=== PATIENT | female | born 1985 ===

== ENCOUNTER 2019-09-08 16:25 | Emergency (ER) | payer SELFPAY ==
[2019-09-08] MEDS ORDERED: ACETAMINOPHEN 325 MG TAB PO ONE (20:31)
--- NOTE | 2019-09-08 20:31 | Event Note ---
ED Screening Note ED Screening Note: left sided abd pain two days ago constipation no n/v/d no appetite no dysuria no allergies to meds on depo This initial assessment/diagnostic orders/clinical plan/treatment(s) is/are subject to change based on patients health status, clinical progression and re- assessment by fellow clinical providers in the ED. Further treatment and workup at subsequent clinical providers discretion. Patient/guardian urged not to elope from the ED as their condition may be serious if not clinically assessed and man aged. Initial orders include: labs, UA
[2019-09-08] MEDS ORDERED: ACETAMINOPHEN 325 MG TAB ONE (20:32)
[2019-09-08 21:17] LABS: Basophils # (Auto) 0.1 K/mm3 (0.0-0.1); Basophils % (Auto) 0.9 % (0.0-1.8); Eosinophils # (Auto) 0.1 K/mm3 (0.0-0.4); Eosinophils % (Auto) 0.8 % (0.0-4.3); Hematocrit 37.3 % (30.3-42.9); Hemoglobin 12.8 gm/dl (10.1-14.3); Lymphocytes # (Auto) 3.8 K/mm3 (1.2-5.4); Lymphocytes % (Auto) 45.7 % (13.4-35.0); Mean Corpuscular HGB Conc 34 % (30-34); Mean Corpuscular Volume 94 fl (79-97); Monocytes # (Auto) 0.5 K/mm3 (0.0-0.8); Monocytes % (Auto) 5.9 % (0.0-7.3); Platelet Count 339 K/mm3 (140-440); Red Blood Count 3.98 M/mm3 (3.65-5.03); Red Cell Distribution Width 14.2 % (13.2-15.2)
[2019-09-08 21:31] LABS: Alanine Aminotransferase 11 units/L (7-56); Albumin 4.8 g/dL (3.9-5); BUN/Creatinine Ratio 16; Blood Urea Nitrogen 11 mg/dL (7-17); Calcium 9.9 mg/dL (8.4-10.2); Hemolysis Index 47
[2019-09-08 21:43] LABS: Bilirubin,Urine NEG (Negative); Blood,Urine SM (Negative); Color,Urine Straw (Yellow); Protein,Urine <15 mg/dL mg/dL (Negative); Urobilinogen,Urine < 2.0 mg/dL (<2.0); WBC,Urine < 1.0 /HPF (0.0-6.0)
[2019-09-09] MEDS ORDERED: ONDANSETRON 4 MG/2 ML INJ IV ONE (01:37)
[2019-09-09] MEDS ORDERED: SODIUM CHLORIDE 0.9% 1000 ML 1,000 ML IV ONE (01:37)
[2019-09-09] MEDS ORDERED: MORPHINE 2 MG/1 ML INJ IV ONE (01:37)
--- NOTE | 2019-09-09 02:58 | Cat Scan Report ---
CT ABDOMEN AND PELVIS WITH CONTRAST INDICATION: Left lower quadrant pain. COMPARISON: No relevant prior imaging study available. TECHNIQUE: Axial, coronal and sagittal CT imaging of the abdomen and pelvis was performed after inje ction of 100 cc Omnipaque [address] scans at this location are performed using CT dose re duction for ALARA by means of automated exposure control. FINDINGS: LOWER CHEST: No significant abnormality. LIVER: No significant abnormality. BILIARY: No significant abnormality. PANCREAS: No significant abnormality. SPLEEN: No significant abnormality. ADRENALS: No significant abnormality. KIDNEYS AND URETERS: No significant abnormality. GI TRACT: No significant abnormality of the stomach, small bowel or colon. Unremarkable appendix. PERITONEUM: No free fluid. No free air. No fluid collection. LYMPH NODES: No significant adenopathy. VASCULATURE: No significant abnormality. URINARY BLADDER: No significant abnormality. REPRODUCTIVE ORGANS: No significant abnormality. ADDITIONAL FINDINGS: None. SKELETAL SYSTEM: No significant abnormality. IMPRESSION: No acute abnormality of the abdomen or pelvis. Signer Name: Dom Stephenson MD Signed: 09/09/2019 2:54 AM Workstation Name: [id number]
[2019-09-09] MEDS ORDERED: KETOROLAC 30 MG/1 ML INJ IV ONE (03:13)
[2019-09-09] MEDS ORDERED: MAGNESIUM CITRATE 300 ML ORAL LIQD PO ONE (03:13)
--- NOTE | 2019-09-09 04:18 | Emergency Department Report ---
ED Abdominal Pain HPI - General Chief Complaint: Abdominal Pain Stated Complaint: LFT SIDE STOMACH PAIN Time Seen by Provider: 09/08/19 20:21 Source: patient, leadership program internship Mode of arrival: Ambulatory Limitations: Language Barrier - History of Present Illness Initial Comments: Patient is a A0 33-year-old female with a history of recurrent c hronic constipation who presents to the ED with complaint of acute onset persistent left lower quadrant abdominal pain for the last 2 days. Patient states that the pain got worse in the last 6 hours. Patient states that the last time she had a bowel movement was 2 days ago. Patient denies dysuria, urinary frequency and urgency, vaginal bleeding, vaginal discharge, hematochezia, hematemesis, vomiting, fever, chills, chest pain, low back pain or syncope. MD Complaint: abdominal pain, other (constipation) -: Sudden, days(s) (2) Location: LL Radiation: none Migration to: no migration Severity scale (0 -10): 7 Quality: cramping, aching, sharp Consistency: constant Improves With: nothing Worsens With: nothing Associated Symptoms: denies other symptoms, nausea, constipation, anorexia. denies: vomiting, diarrhea, fever, chills, dysuria, hematemesis, hematochezia, melena, syncope - Related Data LMP (females 10-50): unknown Previous Rx's Medication Instructions Recorded Last Taken Type Dicyclomine [Bentyl] 20 mg PO Q6H PRN #24 tablet 09/09/19 Unknown Rx Docusate Sodium [Colace CAP] 100 mg PO Q12H PRN #60 capsule 09/09/19 Unknown Rx Ketorolac [Toradol] 10 mg PO Q8H PRN #20 tablet 09/09/19 Unknown Rx Magnesium Citrate 296 ml PO ONCE #1 bottle 09/09/19 Unknown Rx Ondansetron [Zofran Odt] 4 mg PO Q6HR PRN #20 tab.rapdis 09/09/19 Unknown Rx Allergies Allergy/AdvReac Type Severity Reaction Status Date / Time No Known Allergies Allergy Verified 09/08/19 16:28 ED Review of Systems ROS: Stated complaint: LFT SIDE STOMACH PAIN Other details as noted in HPI Constitutional: denies: chills, fever Eyes: denies: eye pain, eye discharge, vision change ENT: denies: ear pain, throat pain Respiratory: denies: cough, shortness of breath, wheezing Cardiovascular: denies: chest pain, palpitations Endocrine: no symptoms reported Gastrointestinal: abdominal pain (LLQ area), nausea, constipation. denies: diarrhea, hematemesis, melena, hematochezia Genitourinary: denies: urgency, dysuria, discharge Musculoskeletal: denies: back pain, joint swelling, arthralgia Skin: denies: rash, lesions Neurological: denies: headache, weakness, paresthesias Psychiatric: denies: anxiety, depression Hematological/Lymphatic: denies: easy bleeding, easy bruising ED Past Medical Hx - Past Medical History Previous Medical History?: No - Surgical History Past Surgical History?: Yes Additional Surgical History: I&D - Social History Smoking Status: Never Smoker Substance Use Type: None - Medications Home Medications: Home Medications Medication Instructions Recorded Confirmed Last Taken Type Dicyclomine [Bentyl] 20 mg PO Q6H PRN #24 tablet 09/09/19 Unknown Rx Docusate Sodium [Colace CAP] 100 mg PO Q12H PRN #60 capsule 09/09/19 Unknown Rx Ketorolac [Toradol] 10 mg PO Q8H PRN #20 tablet 09/09/19 Unknown Rx Magnesium Citrate 296 ml PO ONCE #1 bottle 09/09/19 Unknown Rx Ondansetron [Zofran Odt] 4 mg PO Q6HR PRN #20 tab.rapdis 09/09/19 Unknown Rx ED Physical Exam - General Limitations: Language Barrier General appearance: alert, in no apparent distress - Head Head exam: Present: atraumatic, normocephalic, normal inspection - Eye Eye exam: Present: normal appearance, PERRL, EOMI Pupils: Present: normal accommodation - ENT ENT exam: Present: normal exam, normal orophraynx, mucous membranes moist, TM's normal bilaterally, normal external ear exam - Neck Neck exam: Present: normal inspection, full ROM - Respiratory Respiratory exam: Present: normal lung sounds bilaterally. Absent: respiratory distress, wheezes, chest wall tenderness, accessory muscle use - Cardiovascular Cardiovascular Exam: Present: normal rhythm, bradycardia, normal heart sounds. Absent: systolic murmur, diastolic murmur, rubs, gallop - GI/Abdominal GI/Abdominal exam: Present: soft, tenderness (Palpable LLQ tenderness), normal bowel sounds. Absent: guarding, rebound, hyperactive bowel sounds - Extremities Exam Extremities exam: Present: normal inspection, full ROM, normal capillary refill - Back Exam Back exam: Present: normal inspection, full ROM. Absent: tenderness, CVA tenderness (L), muscle spasm, paraspinal tenderness - Neurological Exam Neurological exam: Present: alert, oriented X3, CN II-XII intact, normal gait, reflexes normal - Psychiatric Psychiatric exam: Present: normal affect, normal mood - Skin Skin exam: Present: warm, dry, intact, normal color. Absent: rash ED Course Vital Signs 09/08/19 09/08/19 09/08/19 17:05 20:25 20:57 Temperature 98.6 F 98.6 F Pulse Rate 59 L 59 L Respiratory 18 18 18 Rate Blood Pressure 100/64 Blood Pressure 100/64 [Right] O2 Sat by Pulse 99 99 Oximetry 09/08/19 21:57 Temperature Pulse Rate Respiratory 18 Rate Blood Pressure Blood Pressure [Right] O2 Sat by Pulse Oximetry ED Medical Decision Making - Lab Data Result diagrams: 09/08/19 20:50 09/08/19 20:50 - Radiology Data Radiology results: report reviewed, image reviewed Findings [facility] [address] [place] [address] Cat Scan Report Signed Patient: MARLIN BRISENO MR#: [id number] : 1985 Acct:[id number] Age/Sex: 33 / F ADM Date: 09/08/19 Loc: ED Attending Dr: Ordering Physician: AMBROSIO SHIRLEY Date of Service: 09/09/19 Procedure(s): CT abdomen pelvis w con Accession Number(s): [id number] cc: AMBROSIO SHIRLEY CT ABDOMEN AND PELVIS WITH CONTRAST INDICATION: Left lower quadrant pain. COMPARISON: No relevant prior imaging study available. TECHNIQUE: Axial, coronal and sagittal CT imaging of the abdomen and pelvis was performed after injection of 100 cc Omnipaque [address] scans at this location are performed using CT dose reduction for ALARA by means of automated exposure control. FINDINGS: LOWER CHEST: No significant abnormality. LIVER: No significant abnormality. BILIARY: No significant abnormality. PANCREAS: No significant abnormality. SPLEEN: No significant abnormality. ADRENALS: No significant abnormality. KIDNEYS AND URETERS: No significant abnormality. GI TRACT: No significant abnormality of the stomach, small bowel or colon. Unremarkable appendix. PERITONEUM: No free fluid. No free air. No fluid collection. LYMPH NODES: No significant adenopathy. VASCULATURE: No significant abnormality. URINARY BLADDER: No significant abnormality. REPRODUCTIVE ORGANS: No significant abnormality. ADDITIONAL FINDINGS: None. SKELETAL SYSTEM: No significant abnormality. IMPRESSION: No acute abnormality of the abdomen or pelvis. Signer Name: Dom Stephenson MD Signed: 09/09/2019 2:54 AM Workstation Name: [id number] Transcribed By: ANDREA Dictated By: Dom Stephenson MD Electronically Authenticated By: Dom Stephenson MD Signed Date/Time: 09/09/19253 DD/ 0 TD/TT: - Medical Decision Making This is a 33-year-old female with a history of chronic constipation who presented to the ED with acute onset persistent left lower quadrant pain with nausea and not having had any bowel movement in 2 days. In the ED, patient is alert and oriented 3 and is not in distress but appears to be in pain, crying during the physical exam. Lab test results were reviewed and all nonactionable including urinalysis. Abdomen pelvis CT scan with contrast shows no acute abnormalities in the abdomen and pelvis areas. Patient was treated for pain in the ED and discharged home on medications for pain and also stool softeners. Patient is advised to follow-up with her primary care physician in 5-7 days for reevaluation or return to the ED immediately if symptoms get worse. - Differential Diagnosis Colitis; Diverticulitis; Ovaria cyst; Constipation; UTI Critical care attestation.: If time is entered above; I have spent that time in minutes in the direct care of this critically ill patient, excluding procedure time. ED Disposition Clinical Impression: Abdominal pain Qualifiers: Abdominal location: left lower quadrant Qualified Code(s): R10.32 - Left lower quadrant pain Constipation Qualifiers: Constipation type: unspecified constipation type Qualified Code(s): K59.00 - Constipation, unspecified Disposition: - TO HOME OR SELFCARE Is pt being admited?: No Does the pt Need Aspirin: No Condition: Stable Instructions: Abdominal Pain (ED), Constipation (ED) Additional Instructions: Institute medicamentos y alimentos, fortunato muchos lquidos y sean un seguimiento con tyler mdico de atencin primaria en 5-7 chester para la reevaluacin. Considere esme ablandadores de heces todos los chester para mejorar los hbitos intestinales. Prescriptions: Dicyclomine [Bentyl] 20 mg PO Q6H PRN #24 tablet PRN Reason: Pain , Severe (7-10) Docusate Sodium [Colace CAP] 100 mg PO Q12H PRN #60 capsule PRN Reason: Constipation Magnesium Citrate 296 ml PO ONCE #1 bottle Ketorolac [Toradol] 10 mg PO Q8H PRN #20 tablet PRN Reason: Pain Ondansetron [Zofran Odt] 4 mg PO Q6HR PRN #20 tab.rapdis PRN Reason: Nausea Referrals: GILBERT ALFONSO MD [Staff Physician] - 3-5 Days Time of Disposition: 04:19 Print Language: BELARUSIAN
[2019-09-09 04:44] VITALS: BP 99/64
== END 2019-09-09 04:45 | disposition home or self-care (01) ==
LOC: ED 16:25
DX: K59.00 Constipation, unspecified (principal); Z79.899 Other long term (current) drug therapy
CPT/HCPCS: 36415; 74177; 80053; 81001; 83690; 84703; 85025; 96374; 96375; 99284; J2270; J2405; J7030; Q9967

== ENCOUNTER 2021-10-12 08:54 | Inpatient (IN) | payer SELFPAY ==
[2021-10-12] MEDS ORDERED: FAMOTIDINE 20 MG/2 ML INJ IV NR (09:29)
[2021-10-12] MEDS ORDERED: BICITRA ORAL LIQD 30ML PO NR (09:29)
[2021-10-12] MEDS ORDERED: LACTATED RINGERS 1,000 ML ONE ×2 (09:30→12:22)
[2021-10-12] MEDS ORDERED: METOCLOPRAMIDE 10 MG/2 ML INJ IV ONE ×2 (09:37→11:00)
[2021-10-12] MEDS ORDERED: FAMOTIDINE 20 MG/2 ML INJ IV ONE (09:37)
--- NOTE | 2021-10-12 09:37 | History and Physical Report ---
History of Present Illness Date of examination: 10/12/21 Date of admission: 10/12/21 08:54 Chief complaint: Elective repeat section To parity desiring surgical sterilization History of present illness: 35-year-old G6, P5 at 39 weeks who presents for elective repeat section and bilateral tubal ligation. She is without complaints at bedside. Informed consent was obtained Past History Past Medical History: other (DVT) Past Surgical History: section (c/sectionx2) Social history: no significant social history - Obstetrical History Expected Date of Delivery: 10/19/21 Actual Gestation: 39 Week(s) 0 Day(s) : 5 Para: 2 Medications and Allergies Allergies Allergy/AdvReac Type Severity Reaction Status Date / Time No Known Allergies Allergy Verified 09/08/19 16:28 Home Medications Medication Instructions Recorded Confirmed Last Taken Type Dicyclomine [Bentyl] 20 mg PO Q6H PRN #24 tablet 09/09/19 Unknown Rx Docusate Sodium [Colace CAP] 100 mg PO Q12H PRN #60 capsule 09/09/19 Unknown Rx Ketorolac [Toradol] 10 mg PO Q8H PRN #20 tablet 09/09/19 Unknown Rx Magnesium Citrate 296 ml PO ONCE #1 bottle 09/09/19 Unknown Rx Ondansetron [Zofran Odt] 4 mg PO Q6HR PRN #20 tab.rapdis 09/09/19 Unknown Rx Review of Systems ROS unobtainable: due to endotracheal tube (denies OB complaint) - Vital Signs Vital signs: Vital Signs Pulse Pulse Ox 95 H 99 10/12/21 09:28 10/12/21 09:28 Temp Pulse Resp BP Pulse Ox 98.5 F 88 20 105/72 99 10/12/21 09:31 10/12/21 09:33 10/12/21 09:31 10/12/21 09:31 10/12/21 09:33 - Physical Exam Breasts: Positive: deferred Cardiovascular: Regular rate Lungs: Positive: Clear to auscultation Abdomen: Positive: normal appearance, soft, normal bowel sounds Genitourinary (Female): Positive: normal external genitalia, normal perenium Vagina: Positive: normal moisture Uterus: Positive: enlarged Anus/Rectum: Positive: normal perianal skin Deep Tendon Reflex Grade: Normal +2 - Obstetrical FHR: category 1 Results Result Diagrams: 10/12/21 09:56 All other labs normal. Assessment and Plan N.p.o. on-call for procedure History of PE will continue Lovenox after delivery Coagulation panel within normal limits Compression stockings Informed consent obtained Richy Cisse MD
--- NOTE | 2021-10-12 09:43 | Anesthesia Day of Surgery ---
Anesthesia Day of Surgery - Day of Surgery Patient Examined: Yes Patient H&P Reviewed: Yes Patient is NPO: Yes Beta Blockers: No Cardiac Clearance: No Pulmonary Clearance: No Dre's Test: N/A
[2021-10-12] MEDS ORDERED: NalbUPHINE 10 MG/1 ML INJ IV PRN (09:44)
--- NOTE | 2021-10-12 09:44 | Anesthesia Consultation ---
Anesthesia Consult and Med Hx Date of service: 10/12/21 - Airway Anesthetic Teeth Evaluation: Good ROM Head & Neck: Adequate Mental/Hyoid Distance: Adequate Mallampati Class: Class II Intubation Access Assessment: Probably Good - Pulmonary Exam CTA: Yes - Cardiac Exam Cardiac Exam: RRR - Pre-Operative Health Status ASA Pre-Surgery Classification: ASA2 Proposed Anesthetic Plan: Spinal Nerve Block: TAP - Pulmonary Hx Smoking: No Hx Sleep Apnea: No - Cardiovascular System Hx Hypertension: No Hx Heart Attack/AMI: No Hx Angina: No - Central Nervous System Hx Seizures: No - Gastrointestinal Hx Gastroesophageal Reflux Disease: No - Endocrine Hx Renal Disease: No Hx Liver Disease: No Hx Insulin Dependent Diabetes: No Hx Non-Insulin Dependent Diabetes: No - Additional Comments Anesthesia Medical History Comments: previous c/s x2
[2021-10-12] MEDS ORDERED: LACTATED RINGERS 1,000 ML IV SCH (09:45)
[2021-10-12] MEDS ORDERED: ceFAZolin/Water 2 GM/20 ML 2 GM/20 ML SYRINGE IV NR (10:00)
[2021-10-12 10:20] LABS: Basophils % (Auto) 0.4 % (0.0-1.8); Eosinophils % (Auto) 0.6 % (0.0-4.3); Hematocrit 33.5 % (30.3-42.9); Hemoglobin 11.8 gm/dl (10.1-14.3); Lymphocytes # (Auto) 1.9 K/mm3 (1.2-5.4); Lymphocytes % (Auto) 28.9 % (13.4-35.0); Mean Corpuscular HGB Conc 35 % (30-34); Mean Corpuscular Volume 94 fl (79-97); Monocytes # (Auto) 0.6 K/mm3 (0.0-0.8); Monocytes % (Auto) 8.8 % (0.0-7.3); Platelet Count 266 K/mm3 (140-440); Red Blood Count 3.55 M/mm3 (3.65-5.03); Red Cell Distribution Width 13.9 % (13.2-15.2)
[2021-10-12 10:30] LABS: INR 0.87 (0.87-1.13); Partial Thromboplastin Time 26.9 Sec. (24.2-36.6)
[2021-10-12] MEDS: LACTATED RINGERS 1,000 ML IV SCH ×3 (10:41→15:06)
[2021-10-12] MEDS ORDERED: ONDANSETRON 4 MG/2 ML INJ IV PRN ×2 (11:00→14:00)
[2021-10-12] MEDS ORDERED: diphenhydrAMINE 50 MG/ML VIAL IV PRN (11:00)
[2021-10-12] MEDS ORDERED: OXYTOCIN DRIP 30 UNITS/500 ML BAG IV SCH ×2 (11:00)
[2021-10-12] MEDS ORDERED: NALOXONE 0.4 MG/1 ML INJ IV PRN ×2 (11:00→14:00)
[2021-10-12] MEDS ORDERED: HYDROmorphone 1 MG/1 ML INJ IV PRN (11:00)
[2021-10-12] MEDS ORDERED: PROMETHAZINE 25 MG RECT SUPP PR PRN ×2 (11:00→14:00)
[2021-10-12] MEDS ORDERED: BICITRA ORAL LIQD 30ML PO ONE (11:00)
[2021-10-12] MEDS ORDERED: PROMETHAZINE 25 MG TAB PO PRN (11:00)
--- NOTE | 2021-10-12 11:31 | Procedure Note ---
OB Delivery Note - Delivery Date of Delivery: 10/12/21 Surgeon: KEVIN WICK - Section Preop diagnosis: desires sterilization Postop diagnosis: same section procedure: repeat low transverse, bilateral tubal ligation Disposition: PACU Complications: none Narrative: Preop diagnosis: IUP at 39.0 weeks previous section x2, multiparity desiring surgical sterilization Postop diagnosis: Same,delivered Procedure: Repeat low transverse section via Pfannenstiel incision with Mofied [place] Bilateral Tubal ligation Surgeon: Dr. Kevin Wick Anesthesia spinal Complications none EBL 500ml IV fluids 1000mL Urine output 200mL, clear Drains Kinney to gravity Findings: Viable female with weight 3080gms and 8/9, normal uterus tubes and ovaries bilaterally Procedure: Patient was consented in OB triage, taken to the operating room where she received excellent spinal anesthesia. She was then placed in the dorsal supine position with a leftward tilt. The abdomen was prepped and draped in a sterile fashion, and a timeout was verified. Adequate anesthesia was confirmed prior to the skin incision. A Pfannenstiel skin incision was made with a scalpel taken down to the underlying structures and the fascia was incised in the midline. The incision was extended laterally with curved Teague scissors, the superior and inferior aspects of the fascial incisions were grasped with Mansoor clamps and the rectus muscles dissected sharply. The abdomen was entered bluntly in the midline carried down inferiorly with good visualization of the bladder. The vesicouterine peritoneum was tented with St Helenian forceps and incised in the midline with Metzenbaum scissors and the ves icouterine peritoneum taken down sharply. The uterine incision was then made sharply with a scalpel. The inferior and superior aspect of the uterine incisions were extended bluntly, the baby's head was delivered atraumatically. The remainder of the delivery was uncomplicated, no nuchal cord. The cord was clamped and cut and baby handed to waiting NICU team. An intact placenta with three-vessel cord delivered manually. The uterus was then cleared of all clots and debris and the uterus exteriorized. The uterine incision was closed in 2 layers of 0 vicryl with excellent hemostasis. Attention then turned to the fallopian tubes which were suture ligated in the usual fashion with excellent hemostasis. The abdomen was then irrigated with warm normal saline and the uterus placed back into the abdomen atraumatically. A second look at the uterine incision assured hemostasis. The peritoneum was closed with 3-0 Vicryl, the rectus muscles approximated with 3-0 Vicryl, and the fascia closed with 0 Vicryl in the usual fashion. The subcuticular structures were closed with interrupted sutures of 3-0 Vicryl and the skin closed with 4-0 Monocryl. A pressure dressing was applied. All sponge needle and instrument counts were correct x2. There were no complications. Mom and baby stable to PACU. EBL 500 mL Richy Wick MD
[2021-10-12] MEDS ORDERED: PHENYLEPHRINE/NS 1,000 MCG/10 ML SYRINGE (OR USE) IV ONE (11:58)
[2021-10-12] MEDS ORDERED: dexAMETHasone 20 MG/5 ML VIAL ONE (12:03)
[2021-10-12] MEDS ORDERED: ONDANSETRON 4 MG/2 ML INJ ONE (12:17)
[2021-10-12] MEDS ORDERED: BUPIVACAINE/PF (0.25%) 2.5 MG/ML 30 ML VIAL INFILTRATI ONE (12:53)
[2021-10-12] MEDS ORDERED: IBUPROFEN 600 MG TAB PO PRN (13:29)
[2021-10-12] MEDS ORDERED: WITCH HAZEL/ GLYCERIN PAD TP PRN (14:00)
[2021-10-12] MEDS ORDERED: LANOLIN/ZINC/DIMETHICONE (LANSINOH) 7 GM TP PRN (14:00)
[2021-10-12] MEDS ORDERED: MORPHINE 2 MG/1 ML INJ IV PRN (14:00)
[2021-10-12] MEDS: MORPHINE 4 MG/1 ML INJ IV PRN (20:38)
[2021-10-12] MEDS ORDERED: MAGNESIUM HYDROXIDE (MOM) ORAL LIQD UDC PO PRN (22:00)
[2021-10-12] MEDS: ENOXAPARIN 40 MG/0.4 ML INJ SUB-Q SCH (22:51)
[2021-10-12] MEDS: HYDROcodone/ACETAMINOPHEN 5-325 MG TAB PO PRN (22:52)
[2021-10-13] MEDS: IBUPROFEN 800 MG TAB PO PRN ×3 (03:14→18:28)
[2021-10-13 05:05] LABS: Hematocrit 31.9 % (30.3-42.9)
[2021-10-13] MEDS: MORPHINE 4 MG/1 ML INJ IV PRN (07:37)
--- NOTE | 2021-10-13 10:53 | Post Anesthesia Evaluation ---
- Post Anesthesia Evaluation Patient Participated: Yes Airway Patent: Yes Stable Respiratory Function: Yes Nausea/Vomiting: No Temp > 96.8F: Yes Pain Manageable: Yes Adequeate Hydration: Yes Anesthesia Complications: No Block Receding Appropriately: Yes Patient on Ventilator: No
--- NOTE | 2021-10-13 13:29 | Progress Note ---
Assessment and Plan POD#1 C/S and BTL 1. routine post op care 2. advance diet as tolerated Subjective Date of service: 10/13/21 Interval history: Pt has no complaints and is currently breast feeding. Pain controlled with meds. Pt passed flatus and is voiding without difficulty. Vag bleed less than a period. Objective - Constitutional Vitals: Vital Signs - 12hr 10/13/21 10/13/21 10/13/21 03:14 04:10 04:32 Temperature 98.0 F Pulse Rate 60 Respiratory 18 18 Rate Blood Pressure 82/57 Blood Pressure [Right] O2 Sat by Pulse 100 Oximetry O2 Sat by Pulse 98 99 Oximetry [ Posterior Bilateral Throughout] 10/13/21 10/13/21 07:24 08:10 Temperature 97.9 F Pulse Rate 60 Respiratory 18 Rate Blood Pressure Blood Pressure 103/63 [Right] O2 Sat by Pulse 100 Oximetry O2 Sat by Pulse 99 Oximetry [ Posterior Bilateral Throughout] General appearance: Present: no acute distress - Neck Neck: normal ROM - Respiratory Respiratory effort: normal - Breasts Breasts: deferred - Cardiovascular Rhythm: regular Extremities: No edema - Gastrointestinal General gastrointestinal: Present: soft, non-tender, other (Dressing C/D/I) - Genitourinary Female genitourinary: deferred - Integumentary Integumentary: warm, dry - Neurologic Neurologic: moves all extremities - Psychiatric Psychiatric: cooperative - Labs CBC & Chem 7: 10/13/21 04:01 Medications & Allergies - Medications Allergies/Adverse Reactions: Allergies No Known Allergies Allergy (Verified 09/08/19 16:28) Home Medications: Home Medications Medication Instructions Recorded Confirmed Last Taken Type Dicyclomine [Bentyl] 20 mg PO Q6H PRN #24 tablet 09/09/19 10/13/21 Unknown Rx Docusate Sodium [Colace CAP] 100 mg PO Q12H PRN #60 capsule 09/09/19 10/13/21 Unknown Rx Ketorolac [Toradol] 10 mg PO Q8H PRN #20 tablet 09/09/19 10/13/21 Unknown Rx Magnesium Citrate 296 ml PO ONCE #1 bottle 09/09/19 10/13/21 Unknown Rx Ondansetron [Zofran Odt] 4 mg PO Q6HR PRN #20 tab.rapdis 09/09/19 10/13/21 Unknown Rx Ibuprofen [Motrin] 600 mg PO Q8H PRN #60 tablet 10/12/21 Unknown Rx oxyCODONE /ACETAMINOPHEN [Percocet 1 tab PO Q6HR PRN #20 tablet 10/12/21 Unknown Rx 5/325] Active Medications: Generic Name Dose Route Start Last Admin Trade Name Freq PRN Reason Stop Dose Admin Hydrocodone Bitart/Acetaminophen 1 each 10/12/21 14:00 10/12/21 22:52 Hydrocodone/Acetaminophen 5-325 Mg Tab PO 1 each Q6H PRN Administration Pain, Moderate (4-6) Diphenhydramine HCl 12.5 mg 10/12/21 11:00 Diphenhydramine 50 Mg/Ml Vial IV Q2H PRN Itching Enoxaparin Sodium 40 mg 10/12/21 22:00 10/12/21 22:51 Enoxaparin 40 Mg/0.4 Ml Inj SUB-Q 40 mg QDAY@2200 [facility] Administration Protocol Hydromorphone HCl 0.5 mg 10/12/21 11:00 Hydromorphone 1 Mg/1 Ml Inj IV Q4H PRN breakthrough pain > 7/10 Oxytocin/Sodium Chloride 30 units in 500 mls @ 0 mls/hr 10/12/21 11:00 Pitocin/Ns 30 Unit/500ml IV TITR [facility] Protocol As Directed Oxytocin/Sodium Chloride 30 units in 500 mls @ 0 mls/hr 10/12/21 11:00 Pitocin/Ns 30 Unit/500ml IV TITR [facility] Protocol As Directed Ibuprofen 600 mg 10/12/21 13:29 Ibuprofen 600 Mg Tab PO Q6H PRN Pain, Mild (1-3) Ibuprofen 800 mg 10/12/21 14:00 10/13/21 12:16 Ibuprofen 800 Mg Tab PO 800 mg Q6H PRN Administration Pain, Moderate (4-6) Magnesium Hydroxide 30 ml 10/12/21 22:00 Magnesium Hydroxide (Mom) Oral Liqd Udc PO QHS PRN Constip Unrelieved By Senna Morphine Sulfate 2 mg 10/12/21 14:00 10/12/21 15:04 Morphine 2 Mg/1 Ml Inj IV 2 mg Q4H PRN Administration Pain, Moderate (4-6) Morphine Sulfate 4 mg 10/12/21 14:00 10/13/21 07:37 Morphine 4 Mg/1 Ml Inj IV 4 mg Q4H PRN Administration Pain , Severe (7-10) Multi-Ingredient Ointment 1 applic 10/12/21 14:00 10/13/21 12:16 Lanolin/Zinc/Dimethicone (Lansinoh) 7 Gm TP 1 applic PRN PRN Administration dryness/cracking Nalbuphine HCl 2.5 mg 10/12/21 09:44 Nalbuphine 10 Mg/1 Ml Inj IV Q2H PRN Itching Naloxone HCl 0.1 mg 10/12/21 14:00 Naloxone 0.4 Mg/1 Ml Inj IV Q2MIN PRN Res Rate </= 8 or 02 SAT < 92% Ondansetron HCl 4 mg 10/12/21 14:00 Ondansetron 4 Mg/2 Ml Inj IV Q8H PRN Nausea And Vomiting Oxycodone/Acetaminophen 1 tab 10/12/21 14:00 Oxycodone /Acetaminophen 5-325mg Tab PO Q6H PRN Pain, Moderate (4-6) Promethazine HCl 25 mg 10/12/21 11:00 Promethazine 25 Mg Tab PO Q6H PRN Nausea And Vomiting Promethazine HCl 25 mg 10/12/21 14:00 Promethazine 25 Mg Rect Supp MT Q6H PRN N/V IF NPO AND NO IV ACCESS Simethicone 80 mg 10/12/21 14:00 Simethicone 80 Mg Chew Tab PO Q6H PRN Gas pain Sodium Chloride 10 ml 10/12/21 14:00 Sodium Chloride 0.9% 10 Ml Flush Syringe IV 10/25/21 13:59 PRN NR Witch Dahlia/Glycerin 1 each 10/12/21 14:00 Witch Dahlia/ Glycerin Pad TP PRN PRN Hemorrhoids/cleansing/soothing
[2021-10-13] MEDS: HYDROcodone/ACETAMINOPHEN 5-325 MG TAB PO PRN (16:53)
[2021-10-13] MEDS: oxyCODONE /ACETAMINOPHEN 5-325MG TAB PO PRN (20:48)
[2021-10-13] MEDS: ENOXAPARIN 40 MG/0.4 ML INJ SUB-Q SCH (22:18)
[2021-10-14] MEDS: SIMETHICONE 80 MG CHEW TAB PO PRN ×2 (00:37→16:37)
[2021-10-14] MEDS: IBUPROFEN 800 MG TAB PO PRN ×2 (00:38→16:32)
[2021-10-14] MEDS: HYDROcodone/ACETAMINOPHEN 5-325 MG TAB PO PRN ×2 (04:20→22:12)
--- NOTE | 2021-10-14 09:00 | Progress Note ---
Assessment and Plan A: S/P Repeat LTCS with BTL Right leg edema (varicose veins) Right side shoulder pain P: Continue routine pp orders Elevate right lower ext Doppler to right leg Encourage ambulation Dr Jarvis consulted Subjective - Subjective Date of service: 10/14/21 Principal diagnosis: s/p LTCS with BTL Patient reports: appetite normal, voiding normally, pain well controlled, flatus, ambulating normally, other (C/o right side shoulder pain since yesterday and right leg edema w/o pain. Right leg mildly edematous with neg homans and PP+2.) : doing well, bottle feeding Objective - Vital Signs Latest vital signs: Vital Signs Temp Pulse Resp BP Pulse Ox Pulse Ox 10/14/21 08:43 98 10/14/21 07:41 97.6 F 75 16 101/74 100 10/14/21 04:20 18 10/14/21 00:38 18 10/14/21 00:20 98.6 F 90 18 107/76 99 10/13/21 20:48 18 10/13/21 20:00 100 10/13/21 15:23 97.9 F 76 18 89/57 100 10/13/21 11:10 99 Intake and Output 10/13/21 10/14/21 10/14/21 22:59 06:59 14:59 Intake Total 540 400 120 Balance 540 400 120 Intake: Oral 240 400 120 Intake, Free Water 300 Other: Total, Intake Amount 240 200 120 # Voids Void 1 1 1 - Exam Breasts: Present: normal Abdomen: Present: normal appearance, soft, normal bowel sounds Vulva: both: normal Uterus: Present: normal, firm, fundal height below umbilicus Extremities: Present: normal Incision: Present: normal, dry, intact
[2021-10-14] MEDS: oxyCODONE /ACETAMINOPHEN 5-325MG TAB PO PRN (09:20)
[2021-10-14 11:00] LABS: Basophils % (Auto) 0.4 % (0.0-1.8); Eosinophils % (Auto) 0.7 % (0.0-4.3); Hemoglobin 10.2 gm/dl (10.1-14.3); Lymphocytes # (Auto) 2.1 K/mm3 (1.2-5.4); Lymphocytes % (Auto) 29.3 % (13.4-35.0); Mean Corpuscular HGB Conc 33 % (30-34); Mean Corpuscular Volume 95 fl (79-97); Monocytes # (Auto) 0.5 K/mm3 (0.0-0.8); Monocytes % (Auto) 6.6 % (0.0-7.3); Platelet Count 279 K/mm3 (140-440); Red Blood Count 3.25 M/mm3 (3.65-5.03); Red Cell Distribution Width 14.2 % (13.2-15.2)
[2021-10-14 11:25] LABS: Alanine Aminotransferase 11 units/L (7-56); Albumin 2.9 g/dL (3.9-5); Blood Urea Nitrogen 6 mg/dL (7-17); Calcium 8.4 mg/dL (8.4-10.2); Hemolysis Index 0
[2021-10-14 11:45] LABS: BUN/Creatinine Ratio 10
--- NOTE | 2021-10-14 16:17 | Vascular Lab Report ---
DUPLEX DOPPLER LOWER EXTREMITY VEINS, LEFT INDICATION / CLINICAL INFORMATION: varicose veins of left leg with edema. TECHNIQUE: Duplex doppler imaging was performed through the veins of the left lower extremity using v enous compression and other maneuvers. COMPARISON: None available. FINDINGS: LEFT COMMON FEMORAL VEIN: Negative. LEFT FEMORAL VEIN: Negative. LEFT POPLITEAL VEIN: Negative. LEFT CALF VEINS: Negative. ADDITIONAL FINDINGS: None. IMPRESSION: 1. No sonographic evidence for DVT in the left lower extremity. Scribed by: Virginia Lagos RDMS, RASHEEDT, KIMBERLY Scribed: 10/14/2021 1:39 PM I have reviewed the images, agree with this report, and edited this report as needed. Signer Name: Jaswant Pina MD Signed: 10/14/2021 4:12 PM Workstation Name: [id number]
[2021-10-14] MEDS: ENOXAPARIN 40 MG/0.4 ML INJ SUB-Q SCH (22:09)
[2021-10-15] MEDS: HYDROcodone/ACETAMINOPHEN 5-325 MG TAB PO PRN (04:05)
--- NOTE | 2021-10-15 09:10 | Progress Note ---
Assessment and Plan A: /postop day 3 S/P repeat low transverse section with BTL. Left leg pain resolved; negative venous ultrasound of LLE. P: Discharge patient home today. Discussed with patient /postop discharge instructions and warning signs. Care of incision and activity restrictions discussed with patient. Advised patient to avoid intercourse, lifting, housework, stair climbing, driving, tub baths (patient may take showers). Advised patient to continue taking her vitamin and iron supplement at home. Advised patient to follow up at [facility] clinic in 1 week. Patient voiced understanding of all instructions. Subjective - Subjective Date of service: 10/15/21 Principal diagnosis: /postop repeat LTCS with BTL Interval history: Patient requests discharge home today. Negative venous doppler US of LLE. Patient states LLE was the leg that was hurting but she states the pain has now resolved. States she never had any pain in the right leg. Patient reports: appetite normal, voiding normally, pain well controlled, flatus, ambulating normally, no dizzy ambulation, no nauseated : doing well Objective - Vital Signs Latest vital signs: Vital Signs Temp Pulse Resp BP BP Pulse Ox Pulse Ox 10/15/21 07:31 98.3 F 83 18 96/65 96 10/15/21 04:05 20 10/15/21 00:50 97.7 F 75 16 98/68 97 10/14/21 22:12 20 10/14/21 20:00 98 10/14/21 15:07 98.2 F 99 H 18 99/62 98 Intake and Output 10/14/21 10/15/21 10/15/21 23:59 07:59 15:59 Intake Total 600 840 Balance 600 840 Intake: Oral 240 240 Intake, Free Water 360 600 Other: Total, Intake Amount 240 240 # Voids Void 1 1 - Exam Cardiovascular: Present: Regular rate, No murmurs Lungs: Present: Clear to auscultation Abdomen: Present: normal appearance, soft, normal bowel sounds. Absent: distention, tenderness, guarding, rigidity Uterus: Present: normal, firm, fundal height below umbilicus. Absent: bogginess, tenderness Extremities: Present: other (varicose veins noted both legs). Absent: tenderness, edema Incision: Present: dry, intact - Labs Labs: Abnormal lab results 10/14/21 10/14/21 Range/Units 10:29 10:29 RBC 3.25 L (3.65-5.03) M/mm3 Chloride 108.2 H (98-107) mmol/L BUN 6 L (7-17) mg/dL Total Protein 6.1 L (6.3-8.2) g/dL Albumin 2.9 L (3.9-5) g/dL
--- NOTE | 2021-10-15 09:23 | Discharge Summary ---
Providers - Providers Date of Admission: 10/12/21 08:54 Date of discharge: 10/15/21 Attending physician: KEVIN WICK MD Primary care physician: KEVIN WICK MD Hospitalization Reason for admission: section Delivery: Procedure: bilateral tubal ligation, repeat low transverse Incision: dry, intact complications: none Discharge diagnosis: IUP at term delivered [place] baby: female Pertinent studies: Labs, venous doppler US of [facility] Hospital course: Stable hospital course Condition at discharge: Good Disposition: 01 HOME / SELF CARE / HOMELESS - Discharge Diagnoses (1) Term delivered Status: Acute Plan - Discharge Medications Prescriptions: Ibuprofen [Motrin] 600 mg PO Q8H PRN #60 tablet PRN Reason: Pain oxyCODONE /ACETAMINOPHEN [Percocet 5/325] 1 tab PO Q6HR PRN #20 tablet PRN Reason: Pain - Provider Discharge Summary Activity: routine, no sex for 6 weeks, no heavy lifting 4 weeks, no strenuous exercise Diet: routine Instructions: routine Additional instructions: Continue taking your vitamin and iron supplement at home. Follow up at [facility] clinic in 1 week. Call your doctor immediately for: * Fever > 100.5 * Heavy vaginal bleeding ( >1 pad per hour) * Severe persistent headache * Shortness of breath * Reddened, hot, painful area to leg or breast * Drainage or odor from incision. * Keep incision clean and dry at all times and follow doctor's instructions regarding bathing/showering - Follow up plan Follow up: [facility] [Referring] - 7 Days
[2021-10-15 14:10] VITALS: BP 106/75
== END 2021-10-15 13:55 | disposition home or self-care (01) | DRG 785 ==
LOC: APU 08:54 → OB 14:43
PROVIDERS: ADMIT Obstetrics & Gynecology; ATTEND Obstetrics & Gynecology
PROC: 10D00Z1 Extraction of Products of Conception, Low, Open Approach (ICD-10-PCS; principal; 2021-10-12)
PROC: 0UB70ZZ Excision of Bilateral Fallopian Tubes, Open Approach (ICD-10-PCS; 2021-10-12)
DX: O34.211 Maternal care for low transverse scar from previous cesarean delivery (principal); Z3A.39 39 weeks gestation of pregnancy; Z37.0 Single live birth; Z30.2 Encounter for sterilization; O12.04 Gestational edema, complicating childbirth; Z20.822 Contact with and (suspected) exposure to COVID-19
CPT/HCPCS: 36415; 80053; 85014; 85018; 85025; 85384; 85610; 85730; 86592; 86850; 86900; 86901; 88302; 99211; G0378; J3490; J7121; G0463; J1100; J1650; J2270; J2370; J2405; J2765; J7120; U0003